=== PATIENT | male | born 1975 | race African-American/Black ===

== ENCOUNTER 2021-01-29 08:13 | Emergency (ER) | payer BC, OTHER ==
[~2021-01-29] VITALS: Ht 185.4 cm; Wt 83.9 kg
[2021-01-29 08:14] VITALS: BP 111/76
[2021-01-29] MEDS ORDERED: KETOROLAC TROMETH 60MG/2ML VIAL IM ONE (09:45)
== END 2021-01-29 10:51 | disposition home or self-care (01) ==
LOC: ER 08:13
DX: S29.012A Strain of muscle and tendon of back wall of thorax, initial encounter (principal); X50.0XXA Overexertion from strenuous movement or load, initial encounter; Y93.89 Activity, other specified; Y92.89 Other specified places as the place of occurrence of the external cause; Y99.8 Other external cause status
CPT/HCPCS: 73010; J1885